=== PATIENT | female | born 1995 | race Caucasian/White ===

== ENCOUNTER 2020-04-03 23:34 | Emergency (ER) | payer MEDICAID, OTHER ==
[2020-04-03] MEDS ORDERED: SODIUM CHLORIDE 0.9% 1,000 ML IV ONE (23:50)
--- NOTE | 2020-04-04 00:11 | ED ---
Abdominal Pain HPI - General Chief Complaint: Abdominal Pain Stated Complaint: Abd pain, light headed Time Seen by Provider: 04/03/20 23:45 Source: patient, RN notes reviewed, old records reviewed Mode of arrival: ambulatory Limitations: no limitations - History of Present Illness Initial Comments: This is a 24-year-old female DF for evaluation patient believes she may have had recent having vaginal bleeding which she thinks may related to m iscarriage yesterday and having some abdominal pain and cramping today. Otherwise patient states she denies any fevers mild nausea no vomiting no chest pain shortness breath or abdominal pain no known travel history or sick contacts. No change in medications. Patient does admit to marijuana use no significant alcohol use. MD Complaint: abdominal pain, other (Dysfunctional uterine bleeding bleeding from which she believes maybe related to miscarriage) -: days(s) Location: epigastric, suprapubic Radiation: suprapubic Migration to: no migration Severity: mild Severity scale (1-10): 3 Quality: cramping Consistency: intermittent Improves With: nothing Worsens With: nothing Context: other (None) Associated Symptoms: denies other symptoms Treatments Prior to Arrival: other (None) - Related Data Previous Rx's Medication Instructions Recorded Ciprofloxacin HCl [Cipro] 500 mg PO Q12HR #14 tablet 03/14/16 Phenazopyridine [Pyridium] 100 mg PO TID 3 Days tablet 03/14/16 Allergies Allergy/AdvReac Type Severity Reaction Status Date / Time amoxicillin Allergy Rash/Hives Verified 04/03/20 23:40 Review of Systems ROS Statement: Those systems with pertinent positive or pertinent negative responses have been documented in the HPI. ROS Other: All systems not noted in ROS Statement are negative. Past Medical History Past Medical History: Thyroid Disorder Additional Past Medical History / Comment(s): Ovarian Cysts History of Any Multi-Drug Resistant Organisms: None Reported Past Surgical History: No Surgical Hx Reported Past Psychological History: No Psychological Hx Reported Smoking Status: Current every day smoker Past Alcohol Use History: Occasional Past Drug Use History: None Reported General Exam Limitations: no limitations General appearance: alert, in no apparent distress Head exam: Present: atraumatic, normocephalic, normal inspection Eye exam: Present: normal appearance, PERRL, EOMI. Absent: scleral icterus, conjunctival injection, periorbital swelling ENT exam: Present: normal exam, mucous membranes moist Neck exam: Present: normal inspection. Absent: tenderness, meningismus, lymphadenopathy Respiratory exam: Present: normal lung sounds bilaterally. Absent: respiratory distress, wheezes, rales, rhonchi, stridor Cardiovascular Exam: Present: regular rate, normal rhythm, normal heart sounds. Absent: systolic murmur, diastolic murmur, rubs, gallop, clicks GI/Abdominal exam: Present: soft, normal bowel sounds. Absent: distended, tenderness, guarding, rebound, rigid Extremities exam: Present: normal inspection, full ROM, normal capillary refill. Absent: tenderness, pedal edema, joint swelling, calf tenderness Back exam: Present: normal inspection Neurological exam: Present: alert, oriented X3, CN II-XII intact Psychiatric exam: Present: normal affect, normal mood Skin exam: Present: warm, dry, intact, normal color. Absent: rash Course Vital Signs 04/03/20 04/04/20 23:35 01:57 Temperature 97.7 F 98 F Pulse Rate 120 H 90 Respiratory 20 18 Rate Blood Pressure 137/93 125/81 O2 Sat by Pulse 100 98 Oximetry - Reevaluation(s) Reevaluation #1: Medical records reviewed Symptoms control Patient family informed of results, questions answered Medical Decision Making - Medical Decision Making 24 female DF for evaluation of nonspecific abdominal pain dysfunctional uterine bleeding not related to positive Test was negative. No episodes or events recorded likely ruptured cyst patient can be discharged - Lab Data Result diagrams: 04/04/20 00:09 04/04/20 00:09 Lab Results 04/04/20 04/04/20 04/04/20 Range/Units 00:09 00:09 00:09 WBC 8.3 (3.8-10.6) k/uL RBC 5.69 H (3.80-5.40) m/uL Hgb 15.7 (11.4-16.0) gm/dL Hct 49.5 H (34.0-46.0) % MCV 86.9 (80.0-100.0) fL MCH 27.6 (25.0-35.0) pg MCHC 31.7 (31.0-37.0) g/dL RDW 13.6 (11.5-15.5) % Plt Count 320 (150-450) k/uL Neutrophils % 70 % Lymphocytes % 20 % Monocytes % 4 % Eosinophils % 3 % Basophils % 1 % Neutrophils # 5.8 (1.3-7.7) k/uL Lymphocytes # 1.7 (1.0-4.8) k/uL Monocytes # 0.3 (0-1.0) k/uL Eosinophils # 0.2 (0-0.7) k/uL Basophils # 0.1 (0-0.2) k/uL Sodium 137 (137-145) mmol/L Potassium 3.7 (3.5-5.1) mmol/L Chloride 104 (98-107) mmol/L Carbon Dioxide 24 (22-30) mmol/L Anion Gap 9 mmol/L BUN 17 (7-17) mg/dL Creatinine 0.87 (0.52-1.04) mg/dL Est GFR (CKD-EPI)AfAm >90 (>60 ml/min/1.73 sqM) Est GFR (CKD-EPI)NonAf >90 (>60 ml/min/1.73 sqM) Glucose 146 H (74-99) mg/dL Calcium 10.0 (8.4-10.2) mg/dL Phosphorus 3.0 (2.5-4.5) mg/dL Magnesium 2.4 H (1.6-2.3) mg/dL Total Bilirubin 0.6 (0.2-1.3) mg/dL AST 29 (14-36) U/L ALT 40 H (4-34) U/L Alkaline Phosphatase 86 (38-126) U/L Total Protein 7.8 (6.3-8.2) g/dL Albumin 4.4 (3.5-5.0) g/dL HCG, Quant <2.4 mIU/mL Urine Color Urine Appearance (Clear) Urine pH (5.0-8.0) Ur Specific Bradner (1.001-1.035) Urine Protein (Negative) Urine Glucose (UA) (Negative) Urine Ketones (Negative) Urine Blood (Negative) Urine Nitrite (Negative) Urine Bilirubin (Negative) Urine Urobilinogen (<2.0) mg/dL Ur Leukocyte Esterase (Negative) Urine RBC (0-5) /hpf Urine WBC (0-5) /hpf Ur Squamous Epith Cells (0-4) /hpf Urine Mucus (None) /hpf Urine Opiates Screen (NotDetected) Ur Oxycodone Screen (NotDetected) Urine Methadone Screen (NotDetected) Ur Propoxyphene Screen (NotDetected) Ur Barbiturates Screen (NotDetected) U Tricyclic Antidepress (NotDetected) Ur Phencyclidine Scrn (NotDetected) Ur Amphetamines Screen (NotDetected) U Methamphetamines Scrn (NotDetected) U Benzodiazepines Scrn (NotDetected) Urine Cocaine Screen (NotDetected) U Marijuana (THC) Screen (NotDetected) Serum Alcohol <10 mg/dL Blood Type A Negative Blood Type Recheck No Previous Record Bld Type Recheck Status ABR ONLY 04/04/20 Range/Units 00:13 WBC (3.8-10.6) k/uL RBC (3.80-5.40) m/uL Hgb (11.4-16.0) gm/dL Hct (34.0-46.0) % MCV (80.0-100.0) fL MCH (25.0-35.0) pg MCHC (31.0-37.0) g/dL RDW (11.5-15.5) % Plt Count (150-450) k/uL Neutrophils % % Lymphocytes % % Monocytes % % Eosinophils % % Basophils % % Neutrophils # (1.3-7.7) k/uL Lymphocytes # (1.0-4.8) k/uL Monocytes # (0-1.0) k/uL Eosinophils # (0-0.7) k/uL Basophils # (0-0.2) k/uL Sodium (137-145) mmol/L Potassium (3.5-5.1) mmol/L Chloride (98-107) mmol/L Carbon Dioxide (22-30) mmol/L Anion Gap mmol/L BUN (7-17) mg/dL Creatinine (0.52-1.04) mg/dL Est GFR (CKD-EPI)AfAm (>60 ml/min/1.73 sqM) Est GFR (CKD-EPI)NonAf (>60 ml/min/1.73 sqM) Glucose (74-99) mg/dL Calcium (8.4-10.2) mg/dL Phosphorus (2.5-4.5) mg/dL Magnesium (1.6-2.3) mg/dL Total Bilirubin (0.2-1.3) mg/dL AST (14-36) U/L ALT (4-34) U/L Alkaline Phosphatase (38-126) U/L Total Protein (6.3-8.2) g/dL Albumin (3.5-5.0) g/dL HCG, Quant mIU/mL Urine Color Yellow Urine Appearance Cloudy H (Clear) Urine pH 5.5 (5.0-8.0) Ur Specific Bradner 1.033 (1.001-1.035) Urine Protein 1+ H (Negative) Urine Glucose (UA) Negative (Negative) Urine Ketones 1+ H (Negative) Urine Blood Negative (Negative) Urine Nitrite Negative (Negative) Urine Bilirubin Negative (Negative) Urine Urobilinogen 2.0 (<2.0) mg/dL Ur Leukocyte Esterase Large H (Negative) Urine RBC 4 (0-5) /hpf Urine WBC 15 H (0-5) /hpf Ur Squamous Epith Cells 14 H (0-4) /hpf Urine Mucus Many H (None) /hpf Urine Opiates Screen Not Detected (NotDetected) Ur Oxycodone Screen Not Detected (NotDetected) Urine Methadone Screen Not Detected (NotDetected) Ur Propoxyphene Screen Not Detected (NotDetected) Ur Barbiturates Screen Not Detected (NotDetected) U Tricyclic Antidepress Not Detected (NotDetected) Ur Phencyclidine Scrn Not Detected (NotDetected) Ur Amphetamines Screen Detected H (NotDetected) U Methamphetamines Scrn Detected H (NotDetected) U Benzodiazepines Scrn Not Detected (NotDetected) Urine Cocaine Screen Not Detected (NotDetected) U Marijuana (THC) Screen Detected H (NotDetected) Serum Alcohol mg/dL Blood Type Blood Type Recheck Bld Type Recheck Status - Radiology Data Radiology results: report reviewed (Ultrasound pelvis mild free fluid possibly worsen physiologic), image reviewed Disposition Clinical Impression: Pelvic pain, Ruptured ovarian cyst, DUB (dysfunctional uterine bleeding) Disposition: HOME SELF-CARE Condition: Good Instructions (If sedation given, give patient instructions): Dysfunctional Ut erine Bleeding (ED), Ruptured Ovarian Cyst (ED) Is patient prescribed a controlled substance at d/c from ED?: No Referrals: None,Stated [Primary Care Provider] - 1-2 days
[2020-04-04 00:21] LABS: Basophils # (A) 0.1 k/uL (0-0.2); Basophils % (A) 1 %; Eosinophils # (A) 0.2 k/uL (0-0.7); Eosinophils % (A) 3 %; HCT 49.5 % (34.0-46.0); HGB 15.7 gm/dL (11.4-16.0); Lymphocytes # (A) 1.7 k/uL (1.0-4.8); Lymphocytes % (A) 20 %; MCH 27.6 pg (25.0-35.0); MCHC 31.7 g/dL (31.0-37.0); MCV 86.9 fL (80.0-100.0); Monocytes # (A) 0.3 k/uL (0-1.0); Monocytes % (A) 4 %; Neutrophils # (A) 5.8 k/uL (1.3-7.7); Neutrophils % (A) 70 %; Platelet Count 320 k/uL (150-450); RBC 5.69 m/uL (3.80-5.40); RDW 13.6 % (11.5-15.5); WBC 8.3 k/uL (3.8-10.6)
[2020-04-04 00:26] LABS: ALT 40 U/L (4-34); AST 29 U/L (14-36); African American GFR (CKD) >90 (>60 ml/min/1.73 sqM); Albumin 4.4 g/dL (3.5-5.0); Alcohol <10 mg/dL; Alkaline Phosphatase 86 U/L (38-126); Anion Gap 9 mmol/L; Blood Urea Nitrogen 17 mg/dL (7-17); Carbon Dioxide 24 mmol/L (22-30); Chloride 104 mmol/L (98-107); Glucose 146 mg/dL (74-99); Magnesium 2.4 mg/dL (1.6-2.3); Non-African American GFR(CKD) >90 (>60 ml/min/1.73 sqM); Potassium 3.7 mmol/L (3.5-5.1); Sodium 137 mmol/L (137-145); Total Bilirubin 0.6 mg/dL (0.2-1.3); Total Protein 7.8 g/dL (6.3-8.2)
[2020-04-04 00:42] LABS: HCG,Quantitative Serum <2.4 mIU/mL
[2020-04-04 00:56] LABS: Appearance,Urine Cloudy (Clear); Bilirubin,Urine Negative (Negative); Blood,Urine Negative (Negative); Color,Urine Yellow; Glucose,Urine (UA) Negative (Negative); Ketones,Urine 1+ (Negative); Leukocyte Esterase,Urine Large (Negative); Mucus,Urine Many /hpf; Nitrite,Urine Negative (Negative); PH, Urine 5.5 (5.0-8.0); Protein,Urine 1+ (Negative); RBC,Urine 4 /hpf (0-5); Specific Gravity,Urine 1.033 (1.001-1.035); Squamous Epithelial Cell,Urine 14 /hpf (0-4); WBC,Urine 15 /hpf (0-5)
[2020-04-04 01:14] LABS: Amphetamine Screen,Urine Detected (NotDetected); Barbiturate Screen,Urine Not Detected (NotDetected); Benzodiazepines Screen,Urine Not Detected (NotDetected); Cocaine Screen,Urine Not Detected (NotDetected); Methadone Screen, Urine Not Detected (NotDetected); Opiate Screen,Urine Not Detected (NotDetected); Oxycodone Screen, Urine Not Detected (NotDetected); Phencyclidine Screen,Urine Not Detected (NotDetected); Tricyclic Antidepressant,Urine Not Detected (NotDetected); Urn Cannabinoid Scrn Detected (NotDetected)
--- NOTE | 2020-04-04 01:28 | US ---
EXAMINATION TYPE: Transabdominal DATE OF EXAM: 04/04/2020 1:00 AM COMPARISON: NONE CLINICAL HISTORY: pain. Pelvic pain and vaginal bleeding x couple days. LMP unknown. . EXAM PERFORMED: Transvaginal (TV) and Transabdominal (TA) EXAM MEASUREMENTS: GESTATIONAL AGE / DATING Physician Established: Not yet established Dates by LMP: Unknown Dates by First Scan: This is first scan Dates by Current Scan for: No intrauterine seen at this time. MATERNAL ANATOMY Uterus: 7.2 x 6.3 x 4.7 cm. Multiple subcentimeter anechoic areas/septated cluster of anechoic areas seen in the cervix. Right Ovary: 2.5 x 2.2 x 2.0 cm. Anechoic area seen measurin.2 x 1.0 x 1.4 cm. Left Ovary: 2.2 x 1.8 x 1.6 cm. Area of mixed echogenicity and peripheral vascularity seen left ovary measurin.3 x 1.1 x 0.9 cm. Post CDS / Adnexa: There appears to be fluid in the CDS. Fluid appears to measure approximately: 1.9 x 2.7 x 0.6 cm. Hyperechoic area is seen within fluid and does not appear to show color flow. This ar ea measures 0.71 cm in length, 0.7 cm in width, and 0.4 cm in height. Presence of free fluid: Yes, CDS. Presence of corpus luteal cyst: Possible left ovary. GESTATION / SURVEY IUP: No -Hyperechoic area seen within cul de sac fluid as mentioned above. Date of LMP: Unknown Beta HcG (if available): Not available. *Lot of patient movement throughout exam. IMPRESSION: The uterus is empty. No evidence of a gestational sac. Small cervical cysts are noted. There is some complex fluid in the cul-de-sac that could relate to blood clot. No endometrial thickening.
[2020-04-04 01:58] VITALS: BP 125/81; PULSE 90; RESP 18; TEMP 98
== END 2020-04-04 01:59 | disposition home or self-care (01) ==
LOC: EC 23:34
DX: N93.8 Other specified abnormal uterine and vaginal bleeding (principal); N83.209 Unspecified ovarian cyst, unspecified side; R10.2 Pelvic and perineal pain; F17.200 Nicotine dependence, unspecified, uncomplicated; Z88.0 Allergy status to penicillin
CPT/HCPCS: 36415; 76801; 76817; 80053; 80306; 80320; 81001; 83735; 84100; 84702; 85025; 86900; 86901; 96360; 96361; 99284